=== PATIENT | male | born 1955 | race Caucasian/White ===

== ENCOUNTER 2020-08-29 16:43 | Emergency (ER) | payer OTHER, SELFPAY ==
--- NOTE | ~2020-08-29 | XR_ITS ---
EXAMINATION: BILATERAL ANKLE AND FOOT X-RAYS CLINICAL INFORMATION: Ulceration's. Rule out osteomyelitis COMPARISON: None TECHNIQUE: 3 views of the bilateral feet and ankles FINDINGS: Bilateral ankle: Bone alignment is normal. No fracture or dislocation or x-ray evidence of osteomyelitis is seen. The ankle mortise is normal. There is a calcaneal spur at the Achilles tendon insertion. There are soft tissue calcifications. Bilateral foot: There is hallux valgus deformity at the first MTP joint. Bone alignment is otherwise normal. No fracture dislocation or x-ray evidence of osteomyelitis is seen. There is a calcaneal spur at the Achilles tendon insertion. Soft tissues are otherwise unremarkable. XR/XR ankle RT min 3V IMPRESSION: No x-ray evidence of osteomyelitis.
--- NOTE | ~2020-08-29 | XR_ITS ---
EXAMINATION: BILATERAL ANKLE AND FOOT X-RAYS CLINICAL INFORMATION: Ulceration's. Rule out osteomyelitis COMPARISON: None TECHNIQUE: 3 views of the bilateral feet and ankles FINDINGS: Bilateral ankle: Bone alignment is normal. No fracture or dislocation or x-ray evidence of osteomyelitis is seen. The ankle mortise is normal. There is a calcaneal spur at the Achilles tendon insertion. There are soft tissue calcifications. Bilateral foot: There is hallux valgus deformity at the first MTP joint. Bone alignment is otherwise normal. No fracture dislocation or x-ray evidence of osteomyelitis is seen. There is a calcaneal spur at the Achilles tendon insertion. Soft tissues are otherwise unremarkable. XR/XR foot RT 2V IMPRESSION: No x-ray evidence of osteomyelitis.
--- NOTE | ~2020-08-29 | XR_ITS ---
EXAMINATION: BILATERAL ANKLE AND FOOT X-RAYS CLINICAL INFORMATION: Ulceration's. Rule out osteomyelitis COMPARISON: None TECHNIQUE: 3 views of the bilateral feet and ankles FINDINGS: Bilateral ankle: Bone alignment is normal. No fracture or dislocation or x-ray evidence of osteomyelitis is seen. The ankle mortise is normal. There is a calcaneal spur at the Achilles tendon insertion. There are soft tissue calcifications. Bilateral foot: There is hallux valgus deformity at the first MTP joint. Bone alignment is otherwise normal. No fracture dislocation or x-ray evidence of osteomyelitis is seen. There is a calcaneal spur at the Achilles tendon insertion. Soft tissues are otherwise unremarkable. XR/XR ankle LT min 3V IMPRESSION: No x-ray evidence of osteomyelitis.
--- NOTE | ~2020-08-29 | XR_ITS ---
EXAMINATION: BILATERAL ANKLE AND FOOT X-RAYS CLINICAL INFORMATION: Ulceration's. Rule out osteomyelitis COMPARISON: None TECHNIQUE: 3 views of the bilateral feet and ankles FINDINGS: Bilateral ankle: Bone alignment is normal. No fracture or dislocation or x-ray evidence of osteomyelitis is seen. The ankle mortise is normal. There is a calcaneal spur at the Achilles tendon insertion. There are soft tissue calcifications. Bilateral foot: There is hallux valgus deformity at the first MTP joint. Bone alignment is otherwise normal. No fracture dislocation or x-ray evidence of osteomyelitis is seen. There is a calcaneal spur at the Achilles tendon insertion. Soft tissues are otherwise unremarkable. XR/XR foot LT 2V IMPRESSION: No x-ray evidence of osteomyelitis.
[2020-08-29 17:00] VITALS: BP 118/70; PULSE 58; RESP 16; TEMP 36.8; O2SAT 98; BMI 33.7
--- NOTE | 2020-08-29 17:21 | PC.NURSE ---
PT HAS APT NEXT WEEK WITH [facility].
--- NOTE | 2020-08-29 17:44 | ED.WOUNDLAC ---
HPI - Wound/Laceration General Chief Complaint: Wound/Laceration Stated Complaint: ulcers in legs Time Seen by Provider: 08/29/20 16:56 History of Present Illness HPI narrative: Patient complains of chronic worsening wounds in both ankles, he does have an appointment with a wound clinic in [facility] in 1 week, no fever no chills Related Data Previous Rx's Medication Instructions Recorded doxycycline hyclate 100 mg PO BID 7 Days #14 cap 08/29/20 Allergies Allergy/AdvReac Type Severity Reaction Status Date / Time No Known Allergies Allergy Verified 08/29/20 17:06 Review of Systems Review of Systems: Positive for bilateral ankle wounds Negatives no fever no chills no dizziness no weakness no headache no chest pain no shortness of breath no numbness weakness or tingling Yes all other systems are reviewed and are negative [facility] Past Medical History Source: nursing notes reviewed Medical History (Updated 08/30/20 @ 00:01 by Lauryn Walsh) AIDS Asthma Heart murmur Social History Social History Advance Directives: No Advance Directives Information Provided: No Physical Exam Vital Signs: Vital Signs: Last Vital Signs Temp 98.3 F 08/29/20 17:00 Pulse 58 08/29/20 17:00 Resp 16 08/29/20 17:00 BP 118/70 08/29/20 17:00 Pulse Ox 98 08/29/20 17:00 Body Mass Index 33.7 General appearance no acute distress Head is normocephalic atraumatic Neck is supple Respiratory no acute distress Abdomen soft nontender Extremities full range of motion in all joints Right and left ankles have small ulcerations over medial ankle area, there is no surrounding erythema there is no discharge from these wounds there is full range of motion in the ankle and neurovascular intact distal Course Course Course Narrative: X-rays did not reveal osteomyelitis, patient has had these problems for some time and does have an appointment with [facility] wound clinic in a week, patient is started on antibiotic doxycycline will return if worse and follow with Wound Clinic Discharge Plan Discharge Clinical Impression: Leg ulcer Patient Disposition: Home, Self-Care Additional Instructions: We started an antibiotic doxycycline Our x-rays did not show any evidence of bone infection now Follow closely with primary doctor, you may need studies of circulation and may need referral to a specialist Follow as scheduled next week with Wound Clinic Return to the ER any time any worse condition or any concerns Prescriptions: New doxycycline hyclate 100 mg capsule 100 mg PO BID 7 Days Qty: 14 RF: 0 Interventions: ED Discharge Assessment Last Done: 08/29/20 18:59 Discharge Date/Time: 08/29/20 18:44
== END 2020-08-29 18:44 | disposition home or self-care (01) ==
PROVIDERS: Emergency Provider Emergency Medicine Emergency Medical Services; PCP Internal Medicine
DX: L97.319 Non-pressure chronic ulcer of right ankle with unspecified severity (principal); L97.329 Non-pressure chronic ulcer of left ankle with unspecified severity; Z79.899 Other long term (current) drug therapy
CPT/HCPCS: 73610; 73620; 99283

== ENCOUNTER 2020-10-14 15:48 | Emergency (ER) | payer OTHER, SELFPAY ==
--- NOTE | ~2020-10-14 | XR_ITS ---
EXAMINATION: Left thumb CLINICAL INFORMATION: Trauma. Pain. COMPARISON: None TECHNIQUE: 3 views of the left thumb. FINDINGS: There is a fracture of the distal phalanx of the thumb. Fracture involves the dorsal aspect of the distal phalanx of the thumb adjacent to the IP joint. There is a displaced fracture fragment at the metadiaphysis that involves the articular surface of bone measuring about 6 mm in size. Fracture fragment slightly displaced. There is no dislocation. There is degenerative joint narrowing of the IP joint of the thumb and the first metacarpal phalangeal joint. XR/XR finger LT min 2V IMPRESSION: Intra-articular fracture involving distal phalanx of the thumb.
[2020-10-14 16:01] VITALS: BP 155/64; PULSE 54; RESP 19; TEMP 36.9; O2SAT 96; BMI 35.3
--- NOTE | 2020-10-14 17:10 | ED_ITS ---
HPI - General Adult General Chief complaint: General Medical Stated complaint: finger infection? Time Seen by Provider: 10/14/20 17:10 Source: patient Mode of arrival: ambulatory Limitations: no limitations History of Present Illness HPI narrative: 64-year-old male with nonsignificant past medical history who presents the ED with left thumb pain times 2-3 days. Patient denies known injury or trauma but states he has had acute swelling to his thumb with increasing pain over the last few days. Denies fevers or chills. Denies issues like this in the past. Denies history of gout. Denies any other areas of con cern or complaint. Related Data Previous Rx's Medication Instructions Recorded doxycycline hyclate 100 mg PO BID 7 Days #14 cap 08/29/20 Allergies Allergy/AdvReac Type Severity Reaction Status Date / Time No Known Allergies Allergy Verified 10/14/20 16:01 Review of Systems Review of Systems: Constitutional : No Weight loss, No Fever, No Chills, No Night Sweats, No Fatigue, No Malaise ENT/Mouth : No Hearing loss, No Ear Pain, No Nasal Congestion, No Sinus Pain, No Hoarseness, No sore throat, No Rhinorrhea, No Swallowing Difficulty Eyes: No Eye Pain, No Swelling, No Redness, No Foreign Body, No Discharge, No Vision Changes Cardiovascular : No Chest Pain, No SOB, No Dyspnea on Exertion, No Orthopnea, No Edema, No Palpitations Respiratory : No Cough, No Sputum, No Wheezing, No Smoke Exposure, No Dyspnea Gastrointestinal : No Nausea, No Vomiting, No Diarrhea, No Constipation, No abdominal Pain, No Hematochezia, No Melena Genitourinary : no irregular bleeding, No Dysuria, No Urinary Frequency, No Pradeep turia, No Urinary Incontinence, No Urgency, No Flank Pain, No Urinary Flow Changes, No Hesitancy Musculoskeletal : No joint pain, No Myalgias, No Joint Swelling Skin : No Skin Lesions, No rash Neuro : No Weakness, No Numbness, No Paresthesias, No Loss of Consciousness, No Dizziness, No Headache Psych : No Anxiety/Panic, No Depression, No SI/HI/AH/VH, No Social Issues, Heme/Lymph: No Bruising, No Bleeding,No Lymphadenopathy Endocrine : No Polyuria, No Polydipsia, No Temperature Intolerance PMFSH Past Medical History Attestation statement: The following information was validated with the patient. Source: old records reviewed and obtained from family Medical History (Updated 10/14/20 @ 18:25 by KAT Goss) AIDS Asthma Heart murmur Social History Social History Advance Directives: No Advance Directives Information Provided: No Physical Exam Vital Signs: Vital Signs: Last Vital Signs Temp 98.5 F 10/14/20 16:01 Pulse 54 10/14/20 16:01 Resp 19 10/14/20 16:01 BP 155/64 H 10/14/20 16:01 Pulse Ox 96 10/14/20 16:01 Body Mass Index 35.3 vital signs have been reviewed as normal and appeared to be correct. Blood pressure normal. Heart rate normal. Respiration rate normal. Temperature normal. Oxygen saturation normal. Appearance: Alert. Oriented X3. No acute distress. Head: Normal external exam. Normocephalic. Atraumatic. No Pickens signs noted. No raccoon eyes noted Eyes: Conjunctiva and sclera normal. ENT: EAC normal. Moist mucous membranes. No drooling noted. No muffled voice noted. Neck: Normal inspection. Neck supple. FROM. No meningeal signs. CVS: Pulses normal throughout. Respiratory: No respiratory distress. Painless inspiration. No accessory muscle usage noted Abdomen: No visible injury noted. Back: Full range of motion noted. Skin: Skin warm and dry. Normal skin color. Normal skin turgor. Extremities: No lower extremity edema. Extremities exhibit normal range of motion. Patient with edema and pain to palpation of left thumb over DIP. No overlying erythema, warmth or ecchymosis Neuro: Oriented X 3. No motor deficit. No sensory deficit. Course Reevaluation(s) Reevaluation #1: Patient's x-ray with evidence of distal intra-articular fracture of affected joint will place in finger splint and discharged with outpatient orthopedic follow-up. Medical Decision Making MDM Narrative Medical decision making narrative: Patient's vital signs are stable and he is afebrile. Patient presenting to the ED with atraumatic left thumb pain times 2- 3 days patient denies any recent injury or trauma that he can recall. No overlying erythema or warmth lower suspicion for infectious etiology patient denies history of gout. Given significant edema with pain over the DIP will obtain a plain film looking for evidence of acute fracture. Patient comfortable with this plan no other signs of acute injury or trauma patient's limb is otherwise neurovascularly intact. Discharge Plan Discharge Clinical Impression: Finger fracture, left Qualifiers: Encounter type: initial encounter Finger: thumb Fracture type: closed Phalanx: distal Fracture alignment: nondisplaced Qualified Code(s): S62.525A - Nondisplaced fracture of distal phalanx of left thumb, initial encounter for closed fracture Patient Disposition: Home, Self-Care Instructions: Finger Fracture (ED) Additional Instructions: You were seen in the emergency department today for left thumb pain there was found to be a fracture in this digit you will be placed in a splint to help with healing follow-up with orthopedics as needed to ensure this is healing appropriately. Use Motrin and for pain control. Prescriptions: No Action doxycycline hyclate 100 mg capsule 100 mg PO BID 7 Days Qty: 14 RF: 0 Referrals: Jani Sosa MD [Physician] - 1 week Print Language: Angolan
== END 2020-10-14 18:47 | disposition home or self-care (01) ==
PROVIDERS: Emergency Provider Emergency Medicine; PCP Internal Medicine
DX: S62.525A Nondisplaced fracture of distal phalanx of left thumb, initial encounter for closed fracture (principal); B20 Human immunodeficiency virus [HIV] disease; J45.909 Unspecified asthma, uncomplicated; X58.XXXA Exposure to other specified factors, initial encounter; Y93.9 Activity, unspecified; Y92.9 Unspecified place or not applicable; Y99.9 Unspecified external cause status
CPT/HCPCS: 29130; 73140; 99283

== ENCOUNTER 2021-01-04 13:38 | Emergency (ER) | payer OTHER, SELFPAY ==
--- NOTE | ~2021-01-04 | XR_ITS ---
EXAMINATION: XR LUMBOSACRAL SPINE CLINICAL INFORMATION: Pain COMPARISON: None TECHNIQUE: Three views of the lumbosacral spine. FINDINGS: The vertebral bodies and posterior elements are normal. The disc spaces are preserved and the vertebral alignment is normal. The paraspinal soft tissues are normal. XR/XR lumbar spine 2-3V IMPRESSION: Unremarkable examination.
[2021-01-04 13:41] VITALS: BP 159/48; PULSE 57; RESP 16; TEMP 36.4; O2SAT 97; BMI 37.5
--- NOTE | 2021-01-04 14:26 | ED.BACK ---
HPI - Back Pain/Injury General Chief Complaint: Back Pain/Injury Stated Complaint: back pain Time Seen by Provider: 01/04/21 14:26 Source: patient Mode of arrival: ambulatory Limitations: no limitations History of Present Illness HPI Narrative: 64-year-old male with past medical history of diabetes, hypertension, hyperlipidemia is here today for back pain. Patient reports that he was moving his bureau by himself and reports twisting his back 5 days ago. Patient denies any paresthesia, denies any urinary or fecal incontinence. Patient denies any other symptoms. Denies any other injury. Denies fall. MD elicited complaint: back pain and other (Twisted his back moving furniture) Onset (ago): day(s) Related Data Previous Rx's Medication Instructions Recorded doxycycline hyclate 100 mg capsule 100 mg PO BID 7 Days #14 cap 08/29/20 cyclobenzaprine 10 mg tablet 10 mg PO BID PRN #10 tab 01/04/21 Allergies Allergy/AdvReac Type Severity Reaction Status Date / Time No Known Allergies Allergy Verified 10/14/20 16:01 Review of Systems Review of Systems: Constitutional : No Weight loss, No Fever, No Chills, No Night Sweats, No Fatigue, No Malaise ENT/Mouth : No Hearing loss, No Ear Pain, No Nasal Congestion, No Sinus Pain, No Hoarseness, No sore throat, No Rhinorrhea, No Swallowing Difficulty Eyes: No Eye Pain, No Swelling, No Redness, No Foreign Body, No Discharge, No Vision Changes Cardiovascular : No Chest Pain, No SOB, No Dyspnea on Exertion, No Orthopnea, No Edema, No Palpitations Respiratory : No Cough, No Sputum, No Wheezing, No Smoke Exposure, No Dyspnea Gastrointestinal : No Nausea, No Vomiting, No Diarrhea, No Constipation, No abdominal Pain, No Hematochezia, No Melena Genitourinary : no irregular bleeding, No Dysuria, No Urinary Frequency, No Hematuria, No Urinary Incontinence, No Urgency, No Flank Pain, No Urinary Flow Changes, No Hesitancy Musculoskeletal : No joint pain, Myalgias, No Joint Swelling Skin : No Skin Lesions, No rash Neuro : No Weakness, No Numbness, No Paresthesias, No Loss of Consciousness, No Dizziness, No Headache Yes all other systems are reviewed and are negative [facility] Past Medical History Medical History (Updated 01/04/21 @ 14:51 by Magalis Mckeon [facility]) AIDS Asthma Heart murmur Social History Social History Advance Directives: No Advance Directives Information Provided: No Physical Exam Vital Signs: Vital Signs: Last Vital Signs Temp 97.5 F 01/04/21 13:41 Pulse 57 01/04/21 13:41 Resp 16 01/04/21 13:41 BP 159/48 H 01/04/21 13:41 Pulse Ox 97 01/04/21 13:41 Body Mass Index 37.5 Const: General: healthy appearing, no acute distress and well developed Nutritional Appearance: well nourished Orientation/consciousness: patient oriented x3 HENMT: Head: Yes normal to inspection, Yes normocephalic and Yes atraumatic Neck: Neck: Yes normal visual inspection, Yes full ROM and Yes trachea midline Thyroid: Thyroid normal Resp: Auscultation: clear to auscultation bilaterally Cardio: Rate: regular rate Rhythm: regular rhythm GI: Inspection: Yes normal to inspection and No distended Palpation (GI): No hepatosplenomegaly present Auscultation: normal bowel sounds Skin: General skin exam: elasticity normal, turgor normal and dry skin Neuro: General: patient oriented x3 Course Course Course Narrative: 64 years old male with past medical history of diabetes, hypertension, hyperlipidemia is here today after sustaining low back injury. Patient reports that 5 days ago he was moving his bureau trying to bring it up the stairs and he twisted his back. Denies paresthesias, no urinary or fecal incontinence. Patient denies any other injuries. Exam shows no paraspinal muscle or or spinal tenderness. Left lower back pain. Negative for CVA tenderness. Will do x-ray and re-evaluate. Reevaluation(s) Reevaluation #1: X-ray negative for any acute findings. Patient is diabetic will send him home on cyclobenzaprine. Patient drove here he is agreeable to take it home. MDM - Back Pain/Injury Imaging Data Lumbar and spine x-ray: Attestation: I personally reviewed and interpreted this imaging study as follows: Radiologist's impression: FINDINGS: The vertebral bodies and posterior elements are normal. The disc spaces are preserved and the vertebral alignment is normal. The paraspinal soft tissues are normal. XR/XR lumbar spine 2-3V IMPRESSION: Unremarkable examination. Discharge Plan Discharge Clinical Impression: Strain of lumbar region Qualifiers: Encounter type: initial encounter Qualified Code(s): S39.012A - Strain of muscle, fascia and tendon of lower back, initial encounter Patient Disposition: Home, Self-Care Instructions: Back Pain (ED) Additional Instructions: Hoy te vieron aqu? despu?s de lesionarte la espalda. Kwan radiograf?a fue negativa para cualquier hallazgo ismael. Puede sherman Tylenol. No tome ibuprofeno. Se le administrar? un medicamento para ayudarlo con los espasmos musculares. Aseg?rese de no conducir ni beber alcohol al sherman amina medicamento. Asim un seguimiento con kwan proveedor de atenci?n primaria en 2-3 d?as. Puede regresar al departamento de emergencias si danyel s?ntomas empeoran o si experimenta alg?n s?ntoma adicional preocupante. Prescriptions: New cyclobenzaprine 10 mg tablet 10 mg PO BID PRN (Reason: muscle spasm) Qty: 10 RF: 0 No Action doxycycline hyclate 100 mg capsule 100 mg PO BID 7 Days Qty: 14 RF: 0 Print Language: Belarusian
== END 2021-01-04 14:54 | disposition home or self-care (01) ==
PROVIDERS: Emergency Provider Emergency Medicine; PCP Internal Medicine
DX: S39.012A Strain of muscle, fascia and tendon of lower back, initial encounter (principal); I10 Essential (primary) hypertension; E11.9 Type 2 diabetes mellitus without complications; X58.XXXA Exposure to other specified factors, initial encounter; Y93.9 Activity, unspecified; Y92.9 Unspecified place or not applicable; Y99.9 Unspecified external cause status; Z79.899 Other long term (current) drug therapy
CPT/HCPCS: 72100; 99283